=== PATIENT | female | born 2000 | race Caucasian/White ===

== ENCOUNTER 2019-06-15 08:23 | Emergency (ER) | payer OTHER ==
--- OUTSIDE RECORDS SUMMARY | 2019-06-15 08:40 | XMS REPORT | Continuity of Care Document ---
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 Payers Date Identification Numbers Payment Provider Subscriber Effective: Policy Number: [email or web address] Chela Tim 2011 [id number] PayID: [id number] [address] [address] [place] [address] Problems Active Problems Provider Date Headache Brooks Epps DO Onset: 07/09/2011 Social History Type Date Description Comments Sex Unknown Marital Status Single Lives With Mother And Father ETOH Use Denies alcohol use Tobacco Use Start: Unknown Patient has never smoked Smoking Status Reviewed: 05/27/19 Patient has never smoked Allergies, Adverse Reactions, Alerts Active Allergies Reaction Severity Comments Date Penicillin 07/09/2011 Minocycline Hives 04/21/2017 Cephalexin Hives 04/21/2017 Medications Active Medications SIG Qnty Indications Ordering Date Provider Norgestimate-Eth 1 by mouth every 28tabs Elmer Driver, 05/27/2019 Estradiol day DO 0.25-35mg-mcg Tablets Amphetamine-Dextroamp 1 tablet by mouth 30tabs F90.0 Elmer Driver, 05/27 hetamine daily DO 5mg Tablets Sertraline HCL 1 by mouth every 90tabs F41.1 Elmer Driver, 02/11/2019 100mg day DO Tablets Buspirone HCL take one tablet by 60tabs F33.1 Elmer Driver, 07/02/2018 10mg mouth twice a day DO Tablets Montelukast Sodium chew one tablet by 90units J30.9 Elmer Driver, 2006 5mg mouth every day DO Chewtabs Spironolactone 1 by mouth every Unknown 100mg day Tablets Clindamycin apply 1 Unknown Phos-Benzoyl Perox application 1-5% topically to Gel affected area 2 times per day for acne DR Mena Iron one by mouth day Unknown 325(65Fe) mg Tablets Vitamin B12 1 by mouth every Unknown 1000mcg day Tablets ER Ibuprofen prn for fever Supriya, 200mg Tablets DO Brooks History Medications Prednisone 4 tablets by 21tabs L50.8 Elmer Driver, 02/11/2019 - 10mg Tablets mouth x 2 days, DO 05/27/2019 then 3 tablets x 2 days, then 2 tablets x 2 days, then 1 tablet until finished Prednisone 1 by mouth 7tabs L50.9 Supriya, 04/21/2017 - 20mg Tablets daily DO Brooks 07/01/2017 Sertraline HCL take one tablet 90tabs F41.1 Elmer Driver, 12/06/2015 - 50mg by mouth every DO 02/11/2019 Tablets day Keflex 1 by mouth two 20caps S81.839S Supriya, 09/14/2015 - 500mg Capsules times a day DO Brooks 10/25/2015 Sertraline HCL 1 1/2 tab by 60tabs F41.1 Supriya, 09/14/2015 - 25mg mouhth for 7 DO Brooks 12/06/2015 Tablets days then2 by mouth every day Diphenhydramine HCL 1 1/2 tsp prn Supriya, - 25mg DO Brooks 12/06/2015 Capsules Cephalexin 1 by mouth Unknown - 500mg Capsules twice a day 02/11/2019 Rajesh Norgestim-Eth Estrad 1 by mouth Unknown - Triphasic every day 05/27/2019 0.18/0.215/0.25 mg-25 mcg Tablets Immunizations CPT Code Status Date Vaccine Reaction Lot # [id number] Given 08/19/2016 Meningococcal Pt tolerated well [id number] B(Bexsero)protn otrMembran Vesicle Vccn 2 [place] [address] Given 06/17/2016 Menactra/Menveo [id number] Meningococcal Vaccine 64164 Given 06/17/2016 Meningococcal [id number] B(Bexsero)protn otrMembran Vesicle Vccn 2 [place] 77[address] Given 09/14/2015 Influenza Virus Im inj completed, Pt [id number] Vaccine,Quadrivalent,Split,P tolerated well reserv Free, 0.5mL,Im [address] Given 08/20/2013 Afluria Or Fluvirin Flu Vac Intramuscular 89915 Given 08/21/2012 Afluria Or Fluvirin Flu Vac Intramuscular 46072 Given 01/16/2012 HPV Vaccine (Gardasil) 3 Dose Schedule 95037 Given 09/13/2011 HPV Vaccine (Gardasil) 3 Dose Schedule 77160 Given 07/09/2011 Menactra/Menveo Meningococcal Vaccine 76560 Given 07/09/2011 HPV Vaccine (Gardasil) 3 Dose Schedule 10727 Given 07/03/2010 Tdap (Adacel) Ages 7 And Above Only 13481 Given 10/09/2009 Administration Swine Flu Vaccine H1N1 15633 Given 10/05/2009 Hepatitis B Vac Ped/Adolescent 3 Dose Schedule 98063 Given 07/15/2008 Varicella (Chicken Pox) Immunization 76265 Given 05/01/2004 DTaP Immunization 7 Yrs & Younger 41773 Given 05/01/2004 MMR Virus Immunization 95220 Given 05/01/2004 IPV / Poliomyelitis Immunization 08209 Given 04/17/2004 IPV / Poliomyelitis Immunization 25291 Given 04/17/2004 Hib Pedvaxhib Vac 3 Dose Schedule 83701 Given 11/17/2003 MMR Virus Immunization 38796 Given 10/22/2001 Varicella (Chicken Pox) Immunization 64975 Given 02/15/2001 IPV / Poliomyelitis Immunization 71364 Given 02/15/2001 DTaP Immunization 7 Yrs & Younger 62788 Given 03/17/2000 Hepatitis B Vac Ped/Adolescent 3 Dose Schedule 71374 Given 02/16/2000 Hib Pedvaxhib Vac 3 Dose Schedule 07001 Given 02/16/2000 DTaP Immunization 7 Yrs & Younger 65038 Given 1999 IPV / Poliomyelitis Immunization 78350 Given 1999 DTaP Immunization 7 Yrs & Younger 38785 Given 1999 Influenza Virus, 6-35 Months Dosage For Intramuscular Or Jet 57723 Given 1999 IPV / Poliomyelitis Immunization 74203 Given 1999 DTaP Immunization 7 Yrs & Younger 59468 Given 1999 Hib Pedvaxhib Vac 3 Dose Schedule 25536 Given 1999 Hepatitis B Vac Ped/Adolescent 3 Dose Schedule Vital Signs Date Vital Result Comment 05/27/2019 3:30pm Weight 150.00 lb Weight Percentile 80th Heart Rate 68 /min BP Systolic 110 mmHg BP Diastolic 70 mmHg Respiratory Rate 18 /min Height 62.2 inches 5'2.20" 8 Height Percentile 21 % BMI (Body Mass Index) 27.3 kg/m2 Body Mass Index Percentile 88 % 02/11/2019 2:05pm Weight 148.00 lb Weight Percentile 79th Heart Rate 74 /min BP Systolic 112 mmHg BP Diastolic 74 mmHg Respiratory Rate 18 /min Height 62.2 inches 5'2.20" 8 Height Percentile 21 % BMI (Body Mass Index) 26.9 kg/m2 Body Mass Index Percentile 87 % 11/13/2018 1:20pm Weight 150.00 lb Weight Percentile 82nd Heart Rate 72 /min BP Systolic 110 mmHg BP Diastolic 64 mmHg Respiratory Rate 18 /min Height 62.2 inches 5'2.20" 07/04 Height Percentile 21 % BMI (Body Mass Index) 27.3 kg/m2 Body Mass Index Percentile 89 % 08/14/2018 8:23am Weight 151.00 lb Weight Percentile 83rd Heart Rate 70 /min BP Systolic 110 mmHg BP Diastolic 60 mmHg Respiratory Rate 18 /min Height 62.2 inches 5'2.20" 818 Height Percentile 21 % BMI (Body Mass Index) 27.4 kg/m2 Body Mass Index Percentile 89 % 07/02/2018 3:03pm Body Temperature 98.5 F Weight 150.00 lb Weight Percentile 82nd Heart Rate 72 /min BP Systolic 110 mmHg BP Diastolic 70 mmHg Respiratory Rate 18 /min Height 62 inches 5'2" 18 Height Percentile 19 % BMI (Body Mass Index) 27.4 kg/m2 Body Mass Index Percentile 90 % 11/07/2017 1:06pm Weight 141.00 lb Weight Percentile 76th Heart Rate 72 /min BP Systolic 106 mmHg BP Diastolic 60 mmHg Respiratory Rate 16 /min Height 62.25 inches 5'2.25" 11/07/17 Height Percentile 22 % BMI (Body Mass Index) 25.6 kg/m2 Body Mass Index Percentile 84 % 07/01/2017 2:34pm Weight 132.00 lb Weight Percentile 65th Heart Rate 84 /min 80 Reg BP Systolic 96 mmHg BP Diastolic 66 mmHg BP Systolic Recheck 98 mmHg BP Diastolic Recheck 68 mmHg Respiratory Rate 16 /min Height 61.75 inches 5'1.75" 07/01/17 Height Percentile 17 % BMI (Body Mass Index) 24.3 kg/m2 Body Mass Index Percentile 79 % 04/21/2017 2:45pm Body Temperature 98.8 F Weight 128.50 lb Weight Percentile 60th Heart Rate 78 /min BP Systolic 96 mmHg BP Diastolic 60 mmHg Respiratory Rate 16 /min Height 61.75 inches 5'1.75" 04/21/17 Height Percentile 17 % BMI (Body Mass Index) 23.7 kg/m2 Body Mass Index Percentile 75 % 06/17/2016 1:28pm Weight 122.00 lb Weight Percentile 52nd Heart Rate 76 /min BP Systolic 102 mmHg BP Diastolic 60 mmHg Respiratory Rate 18 /min Height 61.75 inches 5'1.75" 06/17/16 Height Percentile 18 % BMI (Body Mass Index) 22.5 kg/m2 Body Mass Index Percentile 69 % 03/06/2016 10:58am Weight 116.00 lb Weight Percentile 41st Heart Rate 72 /min BP Systolic 102 mmHg BP Diastolic 62 mmHg Respiratory Rate 18 /min Height 61 inches 5'1" Height Percentile 11 % BMI (Body Mass Index) 21.9 kg/m2 Body Mass Index Percentile 65 % 01/29/2016 3:06pm Body Temperature 98.4 F Weight 118.00 lb Weight Percentile 46th Heart Rate 68 /min BP Systolic Lying Down 110 mmHg BP Diastolic Lying Down 68 mmHg BP Systolic Sitting 108 mmHg BP Diastolic Sitting 68 mmHg BP Systolic Standing 108 mmHg BP Diastolic Standing 64 mmHg Height 61.25 inches 5'1.25" Height Percentile 14 % BMI (Body Mass Index) 22.1 kg/m2 Body Mass Index Percentile 67 % 12/06/2015 10:29am Weight 117.31 lb Weight Percentile 46th Heart Rate 78 /min BP Systolic 108 mmHg BP Diastolic 62 mmHg Respiratory Rate 18 /min Height 61.25 inches 5'1.25" Height Percentile 14 % BMI (Body Mass Index) 22.0 kg/m2 Body Mass Index Percentile 66 % 10/25/2015 10:28am Weight 116.50 lb Weight Percentile 45th Heart Rate 72 /min BP Systolic 108 mmHg BP Diastolic 62 mmHg Respiratory Rate 18 /min 09/14/2015 2:43pm Weight 118.00 lb Weight Percentile 48th Heart Rate 78 /min BP Systolic 102 mmHg BP Diastolic 52 mmHg Respiratory Rate 18 /min Height 61.5 inches 5'1.50" Height Percentile 16 % BMI (Body Mass Index) 21.9 kg/m2 Body Mass Index Percentile 67 % 06/14/2015 9:57am Weight 114.00 lb Weight Percentile 42nd Heart Rate 80 /min BP Systolic 110 mmHg BP Diastolic 70 mmHg Respiratory Rate 18 /min Height 61.6 inches 5'1.60" Height Percentile 18 % BMI (Body Mass Index) 21.1 kg/m2 Body Mass Index Percentile 60 % 08/21/2012 2:54pm Weight 97.00 lb Heart Rate 60 /min BP Systolic 108 mmHg BP Diastolic 70 mmHg Respiratory Rate 18 /min Height 60.5 inches 5'0.50" 03/31/2012 2:31pm Body Temperature 100.0 F Weight 94.00 lb Heart Rate 90 /min BP Systolic 98 mmHg BP Diastolic 66 mmHg Respiratory Rate 18 /min Height 60 inches 5'0" 01/30/2012 11:02am Body Temperature 98.9 F Weight 90.00 lb Heart Rate 88 /min BP Systolic 98 mmHg BP Diastolic 60 mmHg Respiratory Rate 20 /min Height 58.5 inches 4'10.50" 07/09/2011 9:45am BP Systolic 90 mmHg BP Diastolic 60 mmHg 07/09/2011 9:45am Weight 87.00 lb Heart Rate 78 /min BP Systolic 92 mmHg BP Diastolic 62 mmHg Respiratory Rate 18 /min Height 58.5 inches 4'10.50" 11/22/2009 4:15pm Body Temperature 99.2 F Weight 62.12 lb Heart Rate 108 /min BP Systolic 98 mmHg LEFT BP Diastolic 62 mmHg LEFT Respiratory Rate 16 /min 10/05/2009 2:43pm Weight 62.00 lb Heart Rate 78 /min BP Systolic 102 mmHg BP Diastolic 62 mmHg Respiratory Rate 18 /min Height 52 inches 4'4" 08/25/2009 4:00pm Body Temperature 99.8 F Weight 62.00 lb Heart Rate 116 /min BP Systolic 96 mmHg BP Diastolic 66 mmHg Respiratory Rate 20 /min O2 % BldC Oximetry 97 % 07/15/2008 10:29am Weight 54.00 lb Heart Rate 88 /min BP Systolic 90 mmHg BP Diastolic 62 mmHg Respiratory Rate 18 /min Height 49 inches 4'1" 05/30/2008 11:39am Body Temperature 98.2 F Weight 50.00 lb Heart Rate 84 /min BP Systolic 88 mmHg BP Diastolic 60 mmHg Respiratory Rate 19 /min 04/08/2008 1:57pm Weight 51.00 lb Heart Rate 90 /min BP Systolic 88 mmHg BP Diastolic 60 mmHg Respiratory Rate 19 /min 12/29/2007 2:53pm Weight 48.00 lb Heart Rate 84 /min BP Systolic 92 mmHg BP Diastolic 58 mmHg Respiratory Rate 24 /min 09/08/2007 4:05pm Weight 47.00 lb Heart Rate 72 /min BP Systolic 88 mmHg BP Diastolic 58 mmHg Respiratory Rate 18 /min 07/28/2007 2:30pm Body Temperature 97.5 F Weight 47.00 lb Heart Rate 78 /min BP Systolic 92 mmHg BP Diastolic 52 mmHg Respiratory Rate 18 /min 09/09/2006 3:35pm Weight 42.50 lb Heart Rate 78 /min BP Systolic 88 mmHg BP Diastolic 52 mmHg Respiratory Rate 30 /min Height 45 inches 3'9" 07/17/2005 2:04pm Weight 37.00 lb Heart Rate 82 /min BP Systolic 82 mmHg BP Diastolic 48 mmHg Respiratory Rate 24 /min Height 43 inches 3'7" 07/02/2005 9:34am Body Temperature 97.2 F Weight 36.00 lb Heart Rate 88 /min BP Systolic 98 mmHg BP Diastolic 58 mmHg Respiratory Rate 18 /min 06/13/2005 2:34pm Body Temperature 97.4 F Weight 37.00 lb Heart Rate 84 /min 02/07/2005 9:34am Body Temperature 98.9 F Weight 36.00 lb Heart Rate 112 /min BP Systolic 98 mmHg BP Diastolic 56 mmHg Respiratory Rate 18 /min Results Test Date Facility Test Result H/L Range Note Laboratory test 05/12/2019 [facility] HCG,Serum NEGATIVE (Negative) 1, 2 finding (315)- - (Qualitati ve) CBC with Auto 11/13/2018 [facility] WBC 8.0 K/uL 4.1-11.0 Diff-fcmg RBC 4.79 M/uL 4.00-5.40 Hemoglobin 14.0 gm/dL 12.0-16.0 Hematocrit 41.0 % 36.0-47.0 MCV 85.7 fL 80.0-97.0 MCH 29.2 pg 27.0-32.0 MCHC 34.1 g/dL 32.0-36.0 RDW 13.6 % 11.5-14.5 PLT Count 385 K/ul 140-400 MPV 7.6 FL 7.1-10.7 Neutrophil 68.9 % 35.0-75.0 Lymphocyte 21.8 % 16.0-52.0 Monocyte 8.3 % 2.0-10.0 Eosinophil 0.5 % 0.0-5.0 Basophil 0.5 % 0.0-4.0 Abs Neutrophils 5.5 K/uL 2.1-8.0 Abs Lymphocytes 1.7 K/uL 0.8-5.5 Abs Monocytes 0.7 K/uL 0.1-1.0 Abs Eosinophils 0.0 K/uL 0.0-0.5 Abs Basophils 0.0 K/uL 0.0-0.3 Comprehensive Met Panel-FCMG 11/13/2018 [facility] Sodium 139 mmol/L 135- 146 3 Potassium 4.3 mmol/L 3.5-5.2 Chloride# 102 mmol/L 97-110 4 Carbon Dioxide 31 mmol/L 24-34 Glucose 93 mg/dL 70-105 BUN 7 mg/dL 6-26 Creatinine 0.7 mg/dL 0.5-1.4 Calcium 10.0 mg/dL 8.5-10.2 Total Protein 7.5 g/dL 6.0-8.0 Albumin 4.6 g/dL 3.6-4.9 Globulin 2.9 g/dL 2.0-3.5 A/G Ratio 1.6 Ratio 1.0-2.2 Total Bilirubin 0.4 mg/dL 0.1-1.3 Alkaline Phosphatase 101 U/L 24-140 Alt 11 U/L 3-42 Ast 13 U/L 8-42 Ellen Egfr >60 >60 5 Non Ellen Egfr >60 >60 6 Anion Gap 6 mmol/L 5-15 7 TSH Receptor AB -RL 11/13/2018 [facility] TSH Receptor AB <0.90 IU/L 8 Laboratory test finding 11/13/2018 [facility] Vitamin B12 662 pg/mL 180- 914 Ferritin 83.0 ng/ml 11.0-306.8 Laboratory test 10/05/2009 N2N/CCD Import Culture Urine <see comment> 9 finding Laboratory test 08/25/2009 N2N/CCD Import Culture Throat Normal Throat FL 10 finding <See Note> Laboratory test 08/25/2009 N2N/CCD Import Culture Urine No Growth: Final 11 finding <See Note> Rapid Strep Test Negative Laboratory test 04/08/2008 N2N/CCD Import Culture Urine <see comment> 12 finding Laboratory test 09/08/2007 N2N/CCD Import Urine Culture <see comment> 13 finding Laboratory test 07/02/2005 N2N/CCD Import Yesika Species <see comment> 14 finding Culture Urine No Growth: Final <See Note> 15 Gardnerella Vaginalis Negative For Gar <See Note> 16 Trichomonas Vaginalis Negative For Tri <See Note> 17 Laboratory test 06/13/2005 N2N/CCD Import Culture Urine No Growth: Final 18 finding <See Note> 1 L70.0 2 Method: Quidel QuickVue One-Step Immunoassay 3 Updated reference range on new analyzer 4 Updated reference range on new analyzer 5 Concerning GFR Guidelines for Americans: Normal function or mild renal disease, if clinically at risk: >/=60 mL/min Moderately decreased: 30-59 Severely decreased: 15-29 Renal failure: <15 6 Concerning GFR Guidelines: Normal function or mild renal disease, if clinically at risk: >/=60 mL/min Moderately decreased: 30-59 Severely decreased: 15-29 Renal failure: <15 Glomerular Filtration Rate (GFR) is estimated based on the MDRD equation, which assumes a steady state for creatinine as recommended by the National Kidney Disease Education Program in conjunction with the National Institutes of Health and the National Kidney Foundation. Clinical conditions in which it may be necessary to measure GFR by using clearance methods include extremes of age and body size, severe malnutrition or obesity, diseases of skeletal muscle, paraplegia or quadriplegia, vegetarian diet, rapidly changing kidney function, and calculation of the dose of potentially toxic drugs that are excreted by the kidneys. 7 Updated Reference Range 8 Reference range: <=1.75 Performed by [facility], [address] [place] [id number] [email or web address], Og Bland MD, Lab. Director Unless otherwise specified, testing performed by [facility], [address] [address] 9 COLONY COUNT ! 5,000 - 10,000 CFU/ml Organism 1 ! URETHRAL JORDAN 10 NORMAL THROAT JORDAN 11 NO GROWTH: FINAL REPORT 12 COLONY COUNT ! 5,000 - 10,000 CFU/ml Organism 1 ! URETHRAL JORDAN 13 COLONY COUNT ! 1,000 - 5,000 CFU/ml Organism 1 ! URETHRAL JORDAN 14 NEGATIVE FOR YESIKA SPECIES Testing Performed by: [place] [address] 15 NO GROWTH: FINAL REPORT 16 NEGATIVE FOR GARDNERELLA VAGINALIS 17 NEGATIVE FOR TRICHOMONAS VAGINALIS 18 NO GROWTH: FINAL REPORT Procedures Date Code Description Status 11/13/2018 50997 Brief Emotional/Behav Assessment W/ Scoring Doc Per Completed Standard Inst 07/02/2018 72124 Brief Emotional/Behav Assessment W/ Scoring Doc Per Completed Standard Inst 11/07/2017 83355 Electrocardiogram Complete Completed 06/17/2016 18981 Visual Screening Test Completed 06/17/2016 39030 Screening Hearing Test Completed 09/14/2015 67725 X-Ray Tibia & Fibula Ap & Lateral Completed 06/14/2015 92058 Visual Screening Test Completed 06/14/2015 66080 Screening Hearing Test Completed 08/21/2012 92630 Screening Hearing Test Completed 08/21/2012 71292 Visual Screening Test Completed 10/05/2009 78261 Visual Screening Test Completed 10/05/2009 74926 Screening Hearing Test Completed 07/15/2008 35707 Visual Screening Test Completed 07/15/2008 76449 Screening Hearing Test Completed 09/09/2006 97999 Visual Screening Test Completed 09/09/2006 72621 Screening Hearing Test Completed 07/17/2005 64450 Visual Screening Test Completed 07/17/2005 26378 Screening Hearing Test Completed 09/19/2003 56323 Screening Hearing Test Completed Encounters Type Date Location Provider Dx Diagnosis Office Visit 02/11/2019 Michelle Montoya PA F33.1 Major depressive 2:00p disorder, recurrent, moderate F41.1 Generalized anxiety disorder L50.8 Other urticaria Z13.31 Encounter for screening for depression Office Visit 11/13/2018 1:15p [facility] Michelle Vang PA F33.1 Major depressive disorder, recurrent, moderate F41.1 Generalized anxiety disorder R53.83 Other fatigue Office Visit 08/14/2018 8:15a [facility] Michelle Vang PA F33.1 Major depressive disorder, recurrent, moderate F41.1 Generalized anxiety disorder Office Visit 07/02/2018 3:00p [facility] Michelle Vang PA Z00.00 Encntr for general adult medical exam w/o abnormal findings F33.1 Major depressive disorder, recurrent, moderate F41.1 Generalized anxiety disorder Z13.89 Encounter for screening for other disorder Office Visit 11/07/2017 1:00p [facility] Michelle Vang PA R55 Syncope and collapse Office Visit 07/01/2017 2:45p [facility] Brooks Epps DO Z00.129 Encntr for routine child health exam w/o abnormal findings F41.1 Generalized anxiety disorder J30.9 Allergic rhinitis, unspecified Office Visit 04/21/2017 2:45p [facility] Brooks Epps DO L50.9 Urticaria, unspecified Office Visit 06/17/2016 2:00p [facility] Brooks Epps DO Z00.129 Encntr for routine child health exam w/o abnormal findings Z23 Encounter for immunization Office Visit 03/06/2016 11:00a [facility] Brooks Epps DO F41.1 Generalized anxiety disorder Office Visit 01/29/2016 3:00p [facility] Phyllis Jarrett PA R55 Syncope and collapse S00.531A Contusion of lip, initial encounter Office Visit 12/06/2015 10:30a [facility] Brooks Epps DO F41.1 Generalized anxiety disorder Office Visit 10/25/2015 10:30a [facility] Brooks Epps DO F41.1 Generalized anxiety disorder Office Visit 09/14/2015 2:30p [facility] Brooks Epps DO S81.839S Puncture wound without foreign body, unsp lower leg, sequela Z23 Encounter for immunization F41.1 Generalized anxiety disorder Office Visit 06/14/2015 10:00a [facility] Brooks Epps DO V20.2 Exam Or Child Routine Health Check 300.00 Anxiety State Unspec Plan of Treatment Future Appointment(s):08/27/2019 3:30 pm - Michelle Vang PA at [facility]2018 - Michelle Vang, PAF33.1 Major depressive disorder, recurrent, moderateComments:Doing wellContinue current dose of sertralineCall with questions/epxqwtgiD12.1 Generalized anxiety disorderComments:Doing wellContinue current gbmctowidutQ25.0 Attention-deficit hyperactivity disorder, predominantly inatNew Medication:Amphetamine-Dextroamphetamine 5 mg - 1 tablet by mouth dailyComments:Will try adderallDiscussed potential SECall with questions/concernsFollow up:3-4 months
[2019-06-15 08:46] VITALS: BP 114/60
--- NOTE | 2019-06-15 09:14 | UC ---
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 There was bleeding each time. Pleasant 18 yo female presents for eval / tx L hand abrasion s/p cutting hand on mineral aspect of toilet while cleaning approx 6-sih this am. No active bleeding. No p/d/w. Generally healthy. - History of Current Complaint Chief Complaint: VESNAkin Stated Complaint: W/C LEFT HAND CONCERN Time Seen by Provider: 06/15/19 09:12 Hx Obtained From: Patient Hx Last Menstrual Period: 06/10/19 Pain Intensity: 0 - Allergy/Home Medications Allergies/Adverse Reactions: Allergies Allergy/AdvReac Type Severity Reaction Status Date / Time Penicillins Allergy Hives Verified 06/15/19 08:47 Home Medications: Home Medications Montelukast Sodium 10 mg PO DAILY 06/15/19 [History Confirmed 06/15/19] Norgestimate-Eth Estradiol(NF) [Ortho Tri-Cyclen (NF)] 1 tab PO DAILY 06/15/19 [ History Confirmed 06/15/19] Sertraline HCl [Zoloft] 150 mg PO DAILY 06/15/19 [History Confirmed 06/15/19] busPIRone TAB* [Buspar TAB*] 10 mg PO BID 06/15/19 [History Confirmed 06/15/19] PMH/Surg Hx/FS Hx/Imm Hx Previously Healthy: Yes - Surgical History Surgical History: None - Family History Known Family History: Positive: None - Social History Alcohol Use: None Substance Use Type: None Smoking Status (MU): Never Smoked Tobacco - Immunization History Most Recent Tetanus Shot: unknown Review of Systems All Other Systems Reviewed And Are Negative: Yes Constitutional: Positive: Negative Skin: Positive: Other - see hpi Eyes: Positive: Negative ENT: Positive: Negative Respiratory: Positive: Negative Cardiovascular: Positive: Negative Gastrointestinal: Positive: Negative Genitourinary: Positive: Negative Motor: Positive: Other - see hpi Neurovascular: Positive: Other - see hpi Musculoskeletal: Positive: Other: - see hpi Neurological: Positive: Negative Psychological: Positive: Negative Is Patient Immunocompromised?: No Physical Exam Triage Information Reviewed: Yes Appearance: Well-Appearing, Well-Nourished Vital Signs: Initial Vital Signs Temp 98.1 F 06/15/19 08:40 Pulse 93 06/15/19 08:40 Resp 16 06/15/19 08:40 BP 114/60 06/15/19 08:40 Pulse Ox 100 06/15/19 08:40 Vital Signs Reviewed: Yes Eye Exam: Normal - grossly normal ENT Exam: Normal - grossly normal Neck exam: Normal Respiratory Exam: Normal - no tachypnea, no dyspnea Cardiovascular Exam: Normal - hr normal, nondiaphoretic Abdominal Exam: Normal Musculoskeletal Exam: Normal - see "skin" Neurological Exam: Normal - nonfocal, detailed neuro not done Psychological Exam: Normal - conversing easily and appropriately Skin Exam: Other - two abrasions L lateral thenar eminence. No active bleeding. No infection. FROM distal sens + LT good CR Course/Dx - Course Course Of Treatment: Reviewed coa / tx plan. Pt reports that her last tetanus immunization booster was 3 years ago. Feels ok to go back to work. Questions as posed answered to the best of my ability. - Diagnoses Provider Diagnosis: Abrasion hand Discharge - Sign-Out/Discharge Documenting (check all that apply): Patient Departure All imaging exams completed and their final reports reviewed: No Studies - Discharge Plan Condition: Stable Disposition: HOME Patient Education Materials: Abrasion (ED) Referrals: Michelle Vang PA [Primary Care Provider] - Additional Instructions: Please confirm with your doctor that your last tetanus booster indeed was within the last 5 years. Seek medical attention for worse or new problems. - Billing Disposition and Condition Condition: STABLE Disposition: Home
== END 2019-06-15 09:40 | disposition home or self-care (01) ==
LOC: UCCORT 08:23
DX: S60.512A Abrasion of left hand, initial encounter (principal); W22.8XXA Striking against or struck by other objects, initial encounter; Y93.89 Activity, other specified; Y92.9 Unspecified place or not applicable; Z88.0 Allergy status to penicillin
CPT/HCPCS: 99202; G0463